=== PATIENT | female | born 1975 | race Caucasian/White ===

== ENCOUNTER 2016-10-13 14:52 | Emergency (ER) | payer MEDICAID ==
[2014-11-06 16:22] VITALS: BMI 36.5
[~2016-10-13 14:52] MED LIST: INDERAL 40 MG T40 MG PO; KLONOPIN1 MG PO; LITHIUM CARBON300 MG PO; PROZAC40 MG PO; TRAZODONE HCL150 MG PO
== END 2016-10-13 16:35 | disposition home or self-care (01) ==
LOC: D.ER 14:52
DX: M77.9 Enthesopathy, unspecified (principal); M65.9 Synovitis and tenosynovitis, unspecified; M25.512 Pain in left shoulder; F17.200 Nicotine dependence, unspecified, uncomplicated

== ENCOUNTER 2018-08-24 23:48 | Emergency (ER) | payer SELFPAY ==
[~2018-08-24] VITALS: Ht 160 cm; Wt 86.4 kg
[2018-08-24 23:52] VITALS: Ht 160 cm; Wt 86.4 kg
[2018-08-25] MEDS ORDERED: TORADOL10 MG PO (00:34)
[2018-08-25 00:48] VITALS: BP 132/78
== END 2018-08-25 00:48 | disposition home or self-care (01) ==
LOC: D.ER 23:48
DX: S50.11XA Contusion of right forearm, initial encounter (principal); W22.01XA Walked into wall, initial encounter; Y93.89 Activity, other specified; Y92.89 Other specified places as the place of occurrence of the external cause; Z86.73 Personal history of transient ischemic attack (TIA), and cerebral infarction without residual deficits; I10 Essential (primary) hypertension; F17.200 Nicotine dependence, unspecified, uncomplicated